=== PATIENT | female | born 1945 | race Caucasian/White ===

== ENCOUNTER → 2019-06-01 | Outpatient (CLI) | payer MEDICARE, MEDICAID ==
[~2019-06-01] MED LIST: 0.9 % SODIUM CHLORIDE 10 ML DISP.SYRIN. ONE
[2019-06-01 14:46] VITALS: BP 133/69
--- NOTE | 2019-06-01 14:50 | NUR ---
1420Patient arrived ambulatory to Room 103 with family for port a cath flush. Patient states that she is to have port flushed with NS once a month and normally gets normal saline. Vitals stable. Port accessed with 20g 1inch, tolerated well. Flushed with 20cc NS with good blood return noted. Dry Dressing applied. 1450 Patient ambulated off unit independently. Patient directed to [place] for scheduling. Verified with [facility] that patient is to have port flushed with Normal Saline and Heparin. States okay to flush with saline this visit.
== END | disposition home or self-care (01) ==
LOC: OPINF 14:07
PROVIDERS: ATTEND Family Medicine
DX: Z45.2 Encounter for adjustment and management of vascular access device (principal); J44.1 Chronic obstructive pulmonary disease with (acute) exacerbation
CPT/HCPCS: 96523

== ENCOUNTER → 2020-03-14 | Outpatient (CLI) | payer MEDICARE, MEDICAID ==
--- NOTE | 2020-03-14 12:00 | NUR ---
PT ARRIVED TO UNIT VIA AMBULATION. VS OBTAINED AND ARE STABLE. PTS PORT IS ACCESSED WITH 1IN MOSER NEEDLE, FLUSHED WITH 10CC NS AND GIVES GOOD BLOOD RETURN, FLUSHED WITH 5CC HEPARIN FLUSH. MOSER NEEDLE REMOVED AND COVERED WITH BANDAGE AND PATIENT AMBULATED OFF OF UNIT.
[2020-03-14 12:04] VITALS: BP 121/78
[2020-03-14] MEDS: HEPARIN PF 500 UNIT/5 ML DISP.SYRIN. IVP ONE (12:05)
== END | disposition home or self-care (01) ==
LOC: OPINF 11:53
PROVIDERS: ATTEND Family Medicine
DX: Z45.2 Encounter for adjustment and management of vascular access device (principal); J44.9 Chronic obstructive pulmonary disease, unspecified; Z87.891 Personal history of nicotine dependence; Z85.118 Personal history of other malignant neoplasm of bronchus and lung
CPT/HCPCS: 36593

== ENCOUNTER → 2020-12-06 | Outpatient (CLI) | payer MEDICARE, MEDICAID ==
[2020-11-24 14:06] VITALS: BP 171/97
--- NOTE | 2020-12-06 15:44 | RAD ---
INDICATION: Screening for osteopenia/osteoporosis. Postmenopausal evaluation. COMPARISON: None. TECHNIQUE: Bone densitometry was performed through the lumbar spine and proximal femur. IMPRESSION: Lumbar Spine: BMD: 1.45 T-Score: 2.2 Range: Normal Proximal Femur: BMD: 0.94 T-Score: -0.2 Range: Normal World Health Organization Criteria for Bone Density: T-Score: > -1.0: Normal Range < -1.0 to -2.5: Osteopenic Range < -2.5: Osteoporotic Range Electronically signed by: Arnie Washington MD (12/06/2020 3:42 PM) [id number]
== END ==
LOC: DXRAD 13:16
PROVIDERS: ATTEND Family Medicine
DX: Z78.0 Asymptomatic menopausal state (principal)
CPT/HCPCS: 77080

== ENCOUNTER → 2021-04-13 | Outpatient (CLI) | payer MEDICARE, MEDICAID ==
[2020-11-24 14:06] VITALS: BP 171/97
[~2021-04-13] MED LIST changes: -0.9 % SODIUM CHLORIDE 10 ML DISP.SYRIN. ONE; +IOHEXOL 240 MG/ML 50ML VIAL. ONE; +IOHEXOL 300 MG/ML 75 ML VIAL. IV ONE
[2021-04-13 09:10] LABS: CREATININE 0.8 mg/dL (0.6-1.0); GFR 69.7
--- NOTE | 2021-04-13 13:40 | RAD ---
EXAM: CT CHEST, ABDOMEN, AND PELVIS WITH CONTRAST INDICATION: Weight loss COMPARISON: None TECHNIQUE: Helical CT imaging performed of the chest, abdomen and pelvis after administration of 75 L Omnipaque 300 intravenous contrast. Sagittal and coronal reformats were obtained. One or more of the following individualized dose reduction techniques were utilized for this examinat ion: 1. Automated exposure control 2. Adjustment of the mA and/or kV according to patient size 3. Use of iterative reconstruction technique. FINDINGS: CHEST: Thyroid gland and thoracic inlet: There is a 1 cm right thyroid nodule. Heart and great vessels: The heart is normal in size. There are coronary artery calcifications. No pe ricardial effusion. The thoracic aorta is normal in caliber. There is moderate aortic atherosclerosis . Mediastinum and adriana: There is no lymphadenopathy. Lungs and pleura: There is a small right left pleural effusion extending to the apex. There are nodul ar subpleural confluent opacities at the left apex measuring about 1.5 x 1.0 x 0.5 cm (image 12, seri es 4 and image 40, series 5). There are calcified granulomas in the apices. Mild atelectasis in the l ingula and right middle lobe. There are a few scattered cysts in the lungs. No right pleural effusion . Chest wall and axillae: No axillary lymphadenopathy. There is a 1 cm hypodense subcutaneous mass with some peripheral calcification in the upper right chest wall adjacent to the sternoclavicular joint, indeterminate but possibly sebaceous cyst (image 23, series 4). Bones: Schmorl's node or superior endplate compression deformity in the T2 vertebral body, chronic ap pearing. ABDOMEN AND PELVIS: Liver: There are multiple calcified hepatic granulomas. No focal liver lesion. Gallbladder/Biliary Tree: Gallbladder surgically absent. Distal common bile duct is prominent measuri ng 9 mm. Pancreas: Unremarkable Spleen: Calcified splenic granulomas. No splenomegaly. Adrenal Glands: Normal. Kidneys/Ureters/Bladder: Kidneys are normal in size and enhance symmetrically. No hydronephrosis. Mil d bilateral hydronephrosis versus extrarenal pelves. There is a 8 x 7 mm hyperdense or enhancing mass in the right renal pelvis (image 58, series 7 and image 40, series 8). The distal ureters are normal in caliber but mildly increased in density and there is suggestion of bladder wall thickening and en hancement of the bilateral UVJs, indeterminate. There is a 1.2 cm calculus at the inferior left renal pole. 3 cm cyst in the inferior right renal silke e. 1 cm cyst in the inferior left renal pole. Reproductive Organs: Uterus and ovaries are unremarkable. Stomach, small bowel, and colon: The stomach is incompletely distended, limiting evaluation. There is no small bowel obstruction. There is sigmoid diverticulosis without acute diverticulitis. Questionab le wall thickening versus incomplete distention in the ascending colon (image 64-50 series 7). Vasculature: No aortic aneurysm. Moderate calcified aortoiliac atherosclerosis. Lymph Nodes: No lymphadenopathy. Peritoneum and retroperitoneum: No free fluid or free air. Bones: No acute fracture. The bones are demineralized. There is grade 1 spondylolisthesis at L4-L5. S evere lumbar facet arthrosis, greatest at L3-L4 and L4-L5. Probable severe canal narrowing at L2-L3 a nd at least moderate at other levels. IMPRESSION: 1. 8mm hyperdense or enhancing mass in the right renal pelvis. Neoplasm such as transitional cell ca rcinoma is possible. There is also suggestion of wall thickening and enhancement of the bladder wall at the UVJ although this could be within normal limits. Recommend correlation with CT urogram and/or tissue sampling. 2. Wall thickening versus incomplete distention of the ascending colon. Correlate with colonoscopy. 3. Small left pleural effusion extending to the apex. There is a nodular subpleural opacity at the le ft apex measuring at least 1.5 cm with could be scarring or atelectasis, or a pulmonary nodule. Malig chris not excluded. Consider PET/CT to evaluate. 4. Coronary artery calcifications and aortic calcified atherosclerosis. 5. 1 cm subcutaneous hypodense mass in the right chest wall near the sternoclavicular joint, possibly a sebaceous cyst. 6. Left nephrolithiasis. 7. Sigmoid diverticulosis. 8. Post cholecystectomy. Prominent common bile duct, indeterminate. 9. Degenerative disc disease with multilevel canal narrowing, severe at L2-L3. Electronically signed by: Renée Jiménez MD (04/13/2021 1:38 PM) [facility]
== END ==
LOC: CT 08:10
PROVIDERS: ATTEND Family Medicine
DX: C85.90 Non-Hodgkin lymphoma, unspecified, unspecified site (principal); K57.30 Diverticulosis of large intestine without perforation or abscess without bleeding; N20.0 Calculus of kidney; J90 Pleural effusion, not elsewhere classified; R63.4 Abnormal weight loss; R63.0 Anorexia; E04.1 Nontoxic single thyroid nodule; I25.10 Atherosclerotic heart disease of native coronary artery without angina pectoris; I70.0 Atherosclerosis of aorta; J84.10 Pulmonary fibrosis, unspecified; J98.11 Atelectasis; J98.4 Other disorders of lung; M43.8X4 Other specified deforming dorsopathies, thoracic region; K31.89 Other diseases of stomach and duodenum; M43.16 Spondylolisthesis, lumbar region; M47.816 Spondylosis without myelopathy or radiculopathy, lumbar region; Z85.118 Personal history of other malignant neoplasm of bronchus and lung
CPT/HCPCS: 36415; 71260; 74177; 82565; 84520; Q9967

== ENCOUNTER 2021-09-18 11:07 | Emergency (ER) | payer MEDICARE, MEDICAID ==
[~2021-09-18] VITALS: Ht 157.5 cm; Wt 49.0 kg
--- NOTE | 2021-09-18 11:24 | PHYS DOC ---
Past History Past Surgical History: Cholecystectomy, Tonsillectomy General Adult EDM: Chief Complaint: COUGH HPI: HPI: Patient is a 76-year-old female who presents to the emergency department for a green productive cough, nasal and chest congestion and shortness of breath that started 1-1/2 weeks ago. Patient reports that she went to Dr. Rajput's office yesterday for Covid testing that is currently pending. She reports a history of a CVA back in 2012 and tremors. She states that she uses inhalers at home as needed but denies any diagnosis of COPD or emphysema. She states that she has been smoking cigarettes since she was 13. Patient denies chest pain, nausea, vomiting, diarrhea, fevers, sick exposures. Her vital signs are stable. Review of Systems: Review of Systems: Constitutional: See HPI HENT: See HPI Respiratory: See HPI Cardiovascular: See HPI GI: See HPI Neurologic:. Allergies: Allergies: Allergies Coded Allergies Type Severity Reaction Last Updated Verified hydrocodone Allergy Unknown 07/27/19 Yes levothyroxine sodium Allergy Unknown 07/27/19 Yes morphine Allergy Unknown 07/27/19 Yes rosuvastatin Allergy Unknown 07/27/19 Yes Physical Exam: PE: Constitutional: Well developed, well nourished, no acute distress, non-toxic appearance. [] HENT: Normocephalic, atraumatic, bilateral external ears normal, oropharynx moist, no oral exudates, nose normal. [] Eyes: PERRL, EOMI, conjunctiva normal, no discharge. [] Neck: Normal range of motion, no tenderness, supple, no stridor. [] Cardiovascular:Heart rate regular rhythm, no murmur [] Lungs & Thorax: Wheezing noted in all lung jacob Abdomen: Bowel sounds normal, soft, no tenderness, no masses, no pulsatile masses. [] Skin: Warm, dry, no erythema, no rash. [] Back: Normal range of motion Extremities: No tenderness, no cyanosis, no clubbing, ROM intact, no edema. [] Neurologic: Alert and oriented X 3, normal motor function, normal sensory function, no focal deficits noted. [] Psychologic: Affect normal, judgement normal, mood normal. [] Current Patient Data: Labs: Laboratory Tests Test 09/18/21 11:30 White Blood Count 6.1 x10^3/uL Red Blood Count 4.33 x10^6/uL Hemoglobin 13.4 g/dL Hematocrit 40.0 % Mean Corpuscular Volume 92 fL Mean Corpuscular Hemoglobin 31 pg Mean Corpuscular Hemoglobin Concent 34 g/dL Red Cell Distribution Width 13.7 % Platelet Count 174 x10^3/uL Neutrophils (%) (Auto) 75 % Lymphocytes (%) (Auto) 15 % Monocytes (%) (Auto) 8 % Eosinophils (%) (Auto) 2 % Basophils (%) (Auto) 1 % Neutrophils # (Auto) 4.6 x10^3uL Lymphocytes # (Auto) 0.9 x10^3/uL Monocytes # (Auto) 0.5 x10^3/uL Eosinophils # (Auto) 0.1 x10^3/uL Basophils # (Auto) 0.0 x10^3/uL Sodium Level 142 mmol/L Potassium Level 4.1 mmol/L Chloride Level 105 mmol/L Carbon Dioxide Level 29 mmol/L Anion Gap 8 Blood Urea Nitrogen 27 mg/dL Creatinine 1.4 mg/dL Estimated GFR (Cockcroft-Gault) 36.6 BUN/Creatinine Ratio 19 Glucose Level 130 mg/dL Calcium Level 8.8 mg/dL Total Bilirubin 0.4 mg/dL Aspartate Amino Transf (AST/SGOT) 14 U/L Alanine Aminotransferase (ALT/SGPT) 19 U/L Alkaline Phosphatase 79 U/L Troponin I High Sensitivity 17 ng/L Total Protein 6.7 g/dL Albumin 3.4 g/dL Albumin/Globulin Ratio 1.0 Current Medications Medications (Trade) Dose Ordered Sig/Barbara Route PRN Reason Start Time Stop Time Status Last Admin Dose Admin Sodium Chloride 1,000 ml @ 1,000 mls/hr Q1H IV 09/18/21 11:30 09/18/21 12:29 DC 09/18/21 11:39 Albuterol/ Ipratropium (Duoneb) 3 ml 1X ONCE NEB 09/18/21 11:30 09/18/21 11:32 DC 09/18/21 11:42 Methylprednisolone Sodium Succinate (SOLU-Medrol 125MG VIAL) 125 mg 1X ONCE IV 09/18/21 11:30 09/18/21 11:32 DC 09/18/21 11:39 Albuterol/ Ipratropium (Duoneb) 3 ml 1X ONCE NEB 09/18/21 12:00 09/18/21 12:16 DC Vital Signs: Vital Signs Date Time Temp Pulse Resp B/P (MAP) Pulse Ox O2 Delivery O2 Flow Rate FiO2 09/18/21 11:16 97.6 96 22 166/71 (102) 94 Room Air EKG: EKG: EKG performed by ER staff at 1137 shows sinus rhythm with rate of 82, QTC of 419, no STEMI read by Dr. Hartman at 1138 [] Radiology/Procedures: Radiology/Procedures: []PROCEDURE: PORTABLE CHEST 1V EXAMINATION: Chest radiograph. VIEWS: Single AP view of the chest COMPARISON: CT chest from 04/13/2021 INDICATION:76 years, Female, shortness of air, cough. FINDINGS: Normal cardiomediastinal silhouette. Persistent elevation of the right hemidiaphragm. Thoracic aorta is tortuous with associated atherosclerotic disease of the aortic arch. Patchy bilateral perihilar and predominantly upper lobe airspace opacities with mild biapical pleural scarring. Mild blunting of the left costophrenic angle suggesting scarring and/or atelectasis. No sizable pleural effusion. No pneumothorax. IMPRESSION: Subtle patchy bilateral airspace disease multifocal pneumonia could have this a ppearance. Recommend follow-up to resolution. Electronically signed by: Flavia Ariza DO (09/18/2021 11:41 AM) [id number] DICTATED AND SIGNED BY: FLAVIA ARIZA DO DATE: 09/18/21 1135 CC: ROSEANN IRWIN APRN; LEIGH RAJPUT ~ Heart Score: C/O Chest Pain: No Risk Factors: Risk Factors: DM, Current or recent (<one month) smoker, HTN, HLP, family history of CAD, obesity. Risk Scores: Score 0 - 3: 2.5% MACE over next 6 weeks - Discharge Home Score 4 - 6: 20.3% MACE over next 6 weeks - Admit for Clinical Observation Score 7 - 10: 72.7% MACE over next 6 weeks - Early Invasive Strategies Course & Med Decision Making: Course & Med Decision Making Pertinent Labs and Imaging studies reviewed. (See chart for details) [] Patient presents to the emergency department for a green productive cough with nasal and chest congestion as well as shortness of breath. Patient denies any history of COPD reports she uses inhalers as needed and has smoked since she was 13. Patient was noted to have wheezing in all lung jacob. Patient's work-up in the ER consisted of blood work including troponin, EKG, flu/Covid testing, chest x-ray. She was treated with IV fluids, steroids and a DuoNeb for COPD exacerbation. Patient was given 2 breathing treatments while in the emergency department and her wheezing has improved. Patient's oxygen saturation at rest is approximately 92 to 93% on room air. Patient was ambulated in the emergency department and her oxygen saturation was approximately 90 to 91% on room air. Due to borderline oxygen saturations I discussed admission with patient in which she refused. She states that she would like to go home. She will be discharged home with an albuterol inhaler prednisone for her COPD exacerbation and combination therapy antibiotics for pneumonia. I discussed with patient all findings and diagnostic testing as well as the need to follow-up with PCP for further evaluation and treatment or return to the ER if any new or worsening symptoms. Strict return precautions were also discussed at length. Patient voiced understanding and agreement with the plan. Patient is hemodynamically stable at the time of disposition. Katerinaon Disclaimer: Theresa Disclaimer: This electronic medical record was generated, in whole or in part, using a voice recognition dictation system. Departure Departure: Impression: Primary Impression: Pneumonia Qualified Codes: J18.9 - Pneumonia, unspecified organism Disposition: 01 HOME / SELF CARE / HOMELESS Condition: GOOD Referrals: LEIGH RAJPUT (PCP) Patient Instructions: Pneumonia, Adult, Smoking Cessation, Tips For Success Additional Instructions: You were seen in the emergency department today for cough and shortness of breath. You were noted to have a pneumonia which will be treated with an antibiotic. Please start and finish the antibiotic completely. Increase your fluids as that will thin your secretions. You can take Mucinex [id number]-[id number] for congestion. You are being discharged home with an albuterol inhaler that you can use for shortness of breath. You are also being discharged home with a steroid. Please follow-up with your primary care provider tomorrow regarding your ER visit. I would advise you to purchase a pulse oximeter at the pharmacy and monitor your oxygen saturation levels at home. If they drop below 90% please return to the emergency department. Also, return to the emergency department if you develop chest pain, high fevers refractory to treatment, intractable nausea or vomiting, weakness. Scripts Azithromycin (AZITHROMYCIN TABLET) 250 Mg Tablet 1 PKG PO UD for pneumonia for 5 Days, #5 TAB 0 Refills 1 for days 2-5 Prov: ROSEANN IRWIN APRN 09/18/21 Cefdinir (CEFDINIR) 300 Mg Capsule 1 CAP PO BID for pneumonia for 7 Days, #14 CAP 0 Refills Prov: ROSEANN IRWIN APRN 09/18/21 Albuterol Sulfate (PROAIR HFA INHALER) 8.5 Gm Hfa.aer.ad 2 PUFF IH PRN Q4-6HRS PRN for wheezing for 21 Days, #1 INHALER 0 Refills as needed for wheezing Prov: ROSEANN IRWIN APRN 09/18/21 Prednisone (PREDNISONE) 20 Mg Tablet 2 TAB PO DAILY for inflammation for 5 Days, #10 TAB 0 Refills Prov: ROSEANN IRWIN APRN 09/18/21 ROSEANN IRWIN APRN Sep 18, 2021 11:24
[2021-09-18] MEDS ORDERED: IV NORMAL SALINE 1,000ML 1,000 ML IV SCH (11:30)
[2021-09-18] MEDS ORDERED: methylPREDNISolone SOD SUCC PF 125 MG/2 ML VIAL. IV ONE (11:30)
[2021-09-18] MEDS ORDERED: IPRATRPIUM/ALBUTEROL 0.5/2.5MG 3 ML NEBU. NEB ONE ×2 (11:30→12:00)
--- NOTE | 2021-09-18 11:44 | RAD ---
EXAMINATION: Chest radiograph. VIEWS: Single AP view of the chest COMPARISON: CT chest from 04/13/2021 INDICATION:76 years, Female, shortness of air, cough. FINDINGS: Normal cardiomediastinal silhouette. Persistent elevation of the right hemidiaphragm. Thoracic aorta is tortuous with associated atherosclerotic disease of the aortic arch. Patchy bilateral perihilar an d predominantly upper lobe airspace opacities with mild biapical pleural scarring. Mild blunting of t he left costophrenic angle suggesting scarring and/or atelectasis. No sizable pleural effusion. No pn eumothorax. IMPRESSION: Subtle patchy bilateral airspace disease multifocal pneumonia could have this appearance. Recommend f ollow-up to resolution. Electronically signed by: Jacinto Ariza DO (09/18/2021 11:41 AM) [id number]
[2021-09-18 12:02] LABS: BASO % 1 % (0-3); EOS # 0.1 x10^3/uL (0.0-0.7); EOS % 2 % (0-3); HEMOGLOBIN 13.4 g/dL (12.0-15.5); LYMPH # 0.9 x10^3/uL (1.0-4.8); LYMPH % 15 % (24-48); MEAN CORPUSCULAR HEMOGLOBIN 31 pg (25-35); MEAN CORPUSCULAR HGB CONC 34 g/dL (31-37); MEAN CORPUSCULAR VOLUME 92 fL (79-100); MONO # 0.5 x10^3/uL (0.0-1.1); MONO % 8 % (0-9); NEUT # 4.6 x10^3uL (1.8-7.7); NEUT % 75 % (31-73); PLATELET COUNT 174 x10^3/uL (140-400); RED BLOOD COUNT 4.33 x10^6/uL (3.50-5.40); RED CELL DISTRIBUTION WIDTH 13.7 % (11.5-14.5); WHITE BLOOD COUNT 6.1 x10^3/uL (4.0-11.0)
[2021-09-18 12:13] LABS: CALCIUM 8.8 mg/dL (8.5-10.1); CREATININE 1.4 mg/dL (0.6-1.0); GFR 36.6; POTASSIUM 4.1 mmol/L (3.5-5.1)
[2021-09-18 12:18] LABS: ALBUMIN 3.4 g/dL (3.4-5.0); TOTAL BILIRUBIN 0.4 mg/dL (0.2-1.0); TOTAL PROTEIN 6.7 g/dL (6.4-8.2)
[2021-09-18] MEDS ORDERED: ALBU2.5V8 IH (13:52)
[2021-09-18] MEDS ORDERED: PRED20TA PO (13:52)
[2021-09-18] MEDS ORDERED: AZIT250T6 PO ×2 (13:52→14:33)
[2021-09-18] MEDS ORDERED: AMOX1TAB11 PO (13:52)
[2021-09-18 14:15] VITALS: BP 157/74
[2021-09-18] MEDS ORDERED: CEFD300C PO (14:31)
[2021-09-18] MEDS ORDERED: AZITHROMYCIN 250 MG TABLET. PO ONE (14:45)
[2021-09-18] MEDS ORDERED: CEFDINIR 300 MG CAPSULE PO ONE (14:45)
[2021-09-18 16:55] LABS: INFLUENZA A PATIENT NEGATIVE (NEGATIVE); INFLUENZA B PATIENT NEGATIVE (NEGATIVE)
--- NOTE | 2021-09-18 20:07 | EKG ---
[address] [address] Test Date: 2021-09-18 Test Time: 11:37:32 Pat Name: JAX BERNAL Department: Room: Gender: F Corporate Accountant: : 1945 Requested By: ROSEANN IRWIN Order Number: [id number] Reading MD: Measurements Intervals [place] Rate: 82 P: 90 [place]: 168 QRS: -15 QRSD: 78 T: 38 QT: 356 QTc: 419 Interpretive Statements SINUS RHYTHM LEFTWARD AXIS QRS(T) CONTOUR ABNORMALITY CONSISTENT WITH ANTEROSEPTAL INFARCT PROBABLY OLD ABNORMAL ECG RI6.02 No previous ECG available for comparison
== END 2021-09-18 14:48 | disposition home or self-care (01) ==
LOC: ER 11:07
DX: J18.9 Pneumonia, unspecified organism (principal); F17.210 Nicotine dependence, cigarettes, uncomplicated; Z20.822 Contact with and (suspected) exposure to COVID-19; Z88.5 Allergy status to narcotic agent; Z88.8 Allergy status to other drugs, medicaments and biological substances
CPT/HCPCS: 36415; 71045; 80053; 84484; 85025; 87428; 93005; 94640; 96361; 96374; 99285; J2930; J7030

== ENCOUNTER 2021-11-07 18:37 | Emergency (ER) | payer MEDICARE, MEDICAID ==
[~2021-11-07] VITALS: Ht 157.5 cm; Wt 49.0 kg
[~2021-11-07 18:37] MED LIST changes: +ALBU2.5V8 IH; +AMOX1TAB11 PO; +AZIT250T6 PO; +CEFD300C PO; -IOHEXOL 240 MG/ML 50ML VIAL. ONE; -IOHEXOL 300 MG/ML 75 ML VIAL. IV ONE; +PRED20TA PO
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
[2021-11-07] MEDS ORDERED: IV RINGERS SOLUTION,LACTATED 1,000 ML IV SCH (18:45)
--- NOTE | 2021-11-07 19:12 | RAD ---
Exam: CT head INDICATION: Near syncope TECHNIQUE: Sequential axial images through the head were obtained without the administration of IV co ntrast. Exposure: One or more of the following in the visualized dose reduction techniques were utilized for this examination: 1. Automated exposure control 2. Adjustment of the MA and/or KV according to patient size 3. Use of iterative of reconstructive technique Comparisons: None FINDINGS: No focal parenchymal lesion or hemorrhage is identified. There is no midline shift or sulcal effaceme nt. Moderate patchy hypodensity in the periventricular white matter. No acute vascular territory infarcti on is identified. Harley-white distinction is preserved. The ventricular system is within normal limits without compression hydrocephalus. The basal cisterns are well maintained. The visualized portions of the paranasal sinuses and mastoid air cells are well-pneumatized. No acute fractures. IMPRESSION: Moderate small vessel schema change, technically age indeterminate without recent prior imaging. Electronically signed by: Fernanda Pinedo MD (11/07/2021 7:10 PM) [facility]
--- NOTE | 2021-11-07 19:33 | RAD ---
XR CHEST 1V Clinical History: Reason: near syncope, hypoxia / Spl. Instructions: / History: Technique: AP view of the chest was obtained at 11/07/2021 7:03 PM. Comparison: September 18, 2021. Findings: The cardiomediastinal silhouette is normal. The pulmonary vasculature is normal. There is elevation o f the right hemidiaphragm seen previously. Impression: Stable appearance of the chest. Electronically signed by: Elvis Allred III, MD (11/07/2021 7:31 PM) [facility]
[2021-11-07 19:44] LABS: BASO # 0.1 x10^3/uL (0.0-0.2); BASO % 1 % (0-3); EOS # 0.1 x10^3/uL (0.0-0.7); EOS % 2 % (0-3); HEMATOCRIT 38.3 % (36.0-47.0); HEMOGLOBIN 12.9 g/dL (12.0-15.5); LYMPH # 1.1 x10^3/uL (1.0-4.8); LYMPH % 22 % (24-48); MEAN CORPUSCULAR HEMOGLOBIN 31 pg (25-35); MEAN CORPUSCULAR HGB CONC 34 g/dL (31-37); MEAN CORPUSCULAR VOLUME 93 fL (79-100); MONO # 0.3 x10^3/uL (0.0-1.1); MONO % 6 % (0-9); NEUT # 3.4 x10^3uL (1.8-7.7); NEUT % 69 % (31-73); PLATELET COUNT 108 x10^3/uL (140-400); RED CELL DISTRIBUTION WIDTH 13.8 % (11.5-14.5); WHITE BLOOD COUNT 4.9 x10^3/uL (4.0-11.0)
[2021-11-07 19:51] LABS: CALCIUM 9.2 mg/dL (8.5-10.1); CREATININE 0.8 mg/dL (0.6-1.0); GFR 69.7; POTASSIUM 4.4 mmol/L (3.5-5.1)
[2021-11-07 20:01] LABS: INFLUENZA A PATIENT NEGATIVE (NEGATIVE); INFLUENZA B PATIENT NEGATIVE (NEGATIVE)
[2021-11-07 20:03] LABS: ALBUMIN 3.6 g/dL (3.4-5.0); DIRECT BILIRUBIN 0.1 mg/dL (0.0-0.2); MAGNESIUM 1.9 mg/dL (1.8-2.4); TOTAL BILIRUBIN 0.5 mg/dL (0.2-1.0); TOTAL PROTEIN 6.3 g/dL (6.4-8.2)
[2021-11-07] MEDS ORDERED: FUROSEMIDE 40 MG/4 ML VIAL IVP ONE (20:15)
[2021-11-07 20:22] LABS: BARBITURATES NEG (NEG); BENZODIAZEPINES NEG (NEG); CANNABINOIDS NEG (NEG); COCAINE NEG (NEG); METHADONE NEG (NEG); OPIATES NEG (NEG); PHENCYCLIDINE NEG (NEG)
[2021-11-07 20:23] LABS: AMPHETAMINE/METHAMPHETAMINE NEG (NEG)
[2021-11-07 20:24] LABS: CLARITY,URINE CLEAR; COLOR,URINE YELLOW; GLUCOSE,URINE NEG (NEG); NITRITE,URINE NEG (NEG); UROBILINOGEN,URINE 0.2 mg/dL (0.2 mg/dL)
[2021-11-07 20:25] LABS: BACTERIA,URINE FEW /HPF (0-FEW); RBC,URINE OCC /HPF (0-2); SQUAMOUS EPITHELIAL CELL,UR OCC /LPF
[2021-11-07 21:07] LABS: BGAS PH 7.52 (7.35-7.45)
[2021-11-07] MEDS ORDERED: MECL-75 PO (21:56)
[2021-11-07 22:00] VITALS: BP 132/64
== END 2021-11-07 22:00 | disposition home or self-care (01) ==
LOC: ER 18:37
DX: I50.9 Heart failure, unspecified (principal); D69.6 Thrombocytopenia, unspecified; R55 Syncope and collapse; J44.9 Chronic obstructive pulmonary disease, unspecified; F17.210 Nicotine dependence, cigarettes, uncomplicated; Z20.822 Contact with and (suspected) exposure to COVID-19; Z88.5 Allergy status to narcotic agent; Z88.8 Allergy status to other drugs, medicaments and biological substances
CPT/HCPCS: 36415; 36600; 70450; 71045; 80048; 80076; 80307; 81001; 82550; 82803; 83690; 83735; 83880; 84443; 84484; 85025; 85379; 85610; 85730; 87086; 87428; 93005; 96361; 96374; 99285; J1940; J7120